=== PATIENT | male | born 1980 | race African-American/Black ===

== ENCOUNTER 2021-07-27 13:41 | Emergency (ER) | payer OTHER ==
[~2021-07-27] VITALS: Ht 177.8 cm; Wt 89.0 kg
[2021-07-27 14:02] VITALS: BP 139/85
== END 2021-07-27 15:50 | disposition home or self-care (01) ==
LOC: ER 13:41
DX: Z77.21 Contact with and (suspected) exposure to potentially hazardous body fluids (principal); Z00.00 Encounter for general adult medical examination without abnormal findings; Z59.00 Homelessness unspecified; E89.0 Postprocedural hypothyroidism
CPT/HCPCS: 99281